=== PATIENT | male | born 1965 | race Caucasian/White ===

== ENCOUNTER 2021-06-16 15:22 | Emergency (ER) | payer OTHER ==
[~2021-06-16] VITALS: Ht 180.3 cm; Wt 108.9 kg
[2021-06-16] MEDS ORDERED: SIMVASTATIN80 MG (16:37)
[2021-06-16] MEDS ORDERED: ZESTRIL10 M1 (16:37)
[2021-06-16] MEDS ORDERED: AMLODIPINE-OLM1 EAC2 (16:37)
[2021-06-16] MEDS ORDERED: JENTADUETO XR1 EACH (16:38)
[2021-06-16] MEDS ORDERED: ECOTRIN81 MG (16:38)
[2021-06-16] MEDS ORDERED: GLIMEPIRIDE4 M1 (16:38)
== END 2021-06-16 20:03 | disposition home or self-care (01) ==
LOC: ER 15:22
DX: M65.862 Other synovitis and tenosynovitis, left lower leg (principal)

== ENCOUNTER 2021-08-08 13:10 | Emergency (ER) | payer OTHER ==
[~2021-08-08] VITALS: Ht 180.3 cm; Wt 104.3 kg
[~2021-08-08 13:10] MED LIST: AMLODIPINE-OLM1 EAC2; ECOTRIN81 MG; GLIMEPIRIDE4 M1; JENTADUETO XR1 EACH; SIMVASTATIN80 MG; ZESTRIL10 M1
== END 2021-08-08 20:45 | disposition home or self-care (01) ==
LOC: ER 13:10
DX: A09 Infectious gastroenteritis and colitis, unspecified (principal)

== ENCOUNTER 2023-02-08 13:19 | Emergency (ER) | payer OTHER ==
[~2023-02-08] VITALS: Ht 177.8 cm; Wt 111.1 kg
[2023-02-08] MEDS ORDERED: LEVOFLOXACIN750 MG PO (19:56)
== END 2023-02-08 20:36 | disposition home or self-care (01) ==
LOC: ER 13:19
DX: L03.032 Cellulitis of left toe (principal); E11.9 Type 2 diabetes mellitus without complications; Z79.84 Long term (current) use of oral hypoglycemic drugs

== ENCOUNTER 2024-06-04 11:45 | Emergency (ER) | payer OTHER ==
[~2024-06-04] VITALS: Ht 180.3 cm; Wt 106.6 kg
[~2024-06-04 11:45] MED LIST changes: +LEVOFLOXACIN750 MG PO
[2024-06-04] MEDS ORDERED: TRIJARDY XR 121 EACH PO (12:12)
[2024-06-04] MEDS ORDERED: KETOROLAC TROMETHAMINE 30 MG VIAL IM STA (12:48)
[2024-06-04] MEDS ORDERED: CELEBREX200MG PO (15:35)
== END 2024-06-04 15:52 | disposition home or self-care (01) ==
LOC: ER 11:46
DX: M19.90 Unspecified osteoarthritis, unspecified site (principal); M79.671 Pain in right foot; E11.9 Type 2 diabetes mellitus without complications; Z79.84 Long term (current) use of oral hypoglycemic drugs